=== PATIENT | female | born 1990 | race Caucasian/White ===

== ENCOUNTER 2018-04-08 08:32 | Emergency (ER) | payer OTHER ==
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
[2018-04-08 10:41] VITALS: BP 125/71
== END 2018-04-08 10:41 | disposition home or self-care (01) ==
PROC: 0HQ1XZZ Repair Face Skin, External Approach (ICD-10-PCS; principal; 2018-04-08)
DX: S01.81XA Laceration without foreign body of other part of head, initial encounter (principal); S06.0X1A Concussion with loss of consciousness of 30 minutes or less, initial encounter; R41.3 Other amnesia; V19.9XXA Pedal cyclist (driver) (passenger) injured in unspecified traffic accident, initial encounter